=== PATIENT | female | born 1990 | race Two or more races ===

== ENCOUNTER 2025-02-11 15:15 | Emergency (ER) | payer OTHER ==
[~2025-02-11] VITALS: Ht 162.6 cm; Wt 90.7 kg
[~2025-02-11 15:15] MED LIST: PEPCID20 MG PO; PHENERGAN25 MG PO
[2025-02-11 18:12] LABS: BASO % 0.5 % (0.1-1.2); EOS # 0.12 (0.04-0.54); EOS % 1.3 % (0.7-7.0); HEMATOCRIT 40.1 % (34.1-44.9); HEMOGLOBIN 12.9 g/dL (11.2-15.7); LYMPH % 25.5 % (19.3-53.1); MEAN CORPUSCULAR HEMOGLOBIN 26.1 pg (25.6-32.2); MONO # 0.62 (0.24-0.82); MONO % 6.6 % (4.7-12.5); NEUT % 65.7 % (34.0-71.1); PLATELET COUNT 266 K/uL (163-369); RED BLOOD COUNT 4.94 M/uL (3.93-5.22); RED CELL DISTRIBUTION WIDTH 13.6 % (11.6-14.4)
[2025-02-11 18:55] LABS: CALCIUM 9.5 mg/dL (8.5-10.1); CREATININE SERUM 0.8 mg/dL (0.55-1.02); GFR 80.71; POTASSIUM 3.73 mEq/L (3.5-5.1)
== END 2025-02-11 20:28 | disposition home or self-care (01) ==
LOC: ER 15:27
DX: O26.859 Spotting complicating pregnancy, unspecified trimester (principal)